=== PATIENT | male | born 1955 | race Caucasian/White ===

== ENCOUNTER → 2017-08-18 | Outpatient (CLI) | payer BC, OTHER ==
--- NOTE | 2017-08-18 08:37 | DIAGNOSTIC IMAGING REPORT ---
R HIP UNILATERAL MIN 2 VIEWS CLINICAL HISTORY: RIGHT HIP PAIN X SEVERAL MONTHS pain COMPARISON: None. DISCUSSION: Moderate generalized degenerative change of the right hip. Mild subchondral cyst formation of the femoral head. No evidence for fracture or acetabular protrusion. Bone mineralization is within normal limits. There is no evidence for soft tissue swelling. IMPRESSION: Moderate degenerative change. No acute process. The above report was generated using voice recognition software. It may contain grammatical, syntax or spelling errors. Electronically signed by: Samir Genao M.D. 08/18/2017 8:35 AM Dictated Date/Time: 08/18/2017 8:34 AM
== END | disposition home or self-care (01) ==
LOC: C.RDSM 08:21
PROVIDERS: ATTEND Internal Medicine
DX: M16.11 Unilateral primary osteoarthritis, right hip (principal)